=== PATIENT | female | born 1985 ===

== ENCOUNTER 2016-07-11 00:54 | Emergency (ER) | payer OTHER ==
[2016-07-11 02:48] LABS: SPECIFIC GRAVITY 1.015 (1.001-1.030); URINE BILIRUBIN NEGATIVE (NEGATIVE); URINE BLOOD 4+ (NEGATIVE); URINE GLUCOSE (UA) NEGATIVE (NEGATIVE); URINE LEUKOCYTE ESTERASE 2+ (NEGATIVE); URINE NITRITE NEGATIVE (NEGATIVE); URINE PROTEIN 2+ (NEGATIVE); URINE UROBILINOGEN NORMAL (0-1 mg/dl)
[2016-07-11 02:49] LABS: HCG,QUALITATIVE URINE NEGATIVE
[2016-07-11 02:50] LABS: URINE APPEARANCE HAZY; URINE COLOR YELLOW
[2016-07-11 02:55] LABS: URINE BACTERIA 1+; URINE EPITHELIAL CELLS FEW /hpf; URINE RBC >100 /hpf; URINE WBC >100 /hpf
[2016-07-11] MEDS ORDERED: SULFAMETHOXAZOLE 800 MG/TRIMETHOPRIM 160 MG TABLET ONE (03:08)
== END 2016-07-11 03:28 | disposition home or self-care (01) ==
LOC: ED 00:54
DX: N12 Tubulo-interstitial nephritis, not specified as acute or chronic (principal)
CPT/HCPCS: 81025; 87086; 87186; 81001; 99283 ×2; A9270

== ENCOUNTER 2016-07-13 21:47 | Emergency (ER) | payer OTHER ==
[2016-07-13] MEDS ORDERED: IOPAMIDOL 370 (76%) 100 ML VIAL IV ONE (21:48)
[2016-07-13 23:04] LABS: ABSOLUTE NEUTROPHIL COUNT 5.6 K/mm3 (1.8-7.7); BASO # 0.1 K/mm3 (0.0-0.2); BASO % 0.6 % (0.2-1.0); EOS # 0.2 (0.0-0.5); EOS % 2.2 % (0.9-2.9); HEMOGLOBIN 13.3 gm/l (12.0-16.0); IMM NEUT% 0.2 % (0-1); LYMPH # 2.2 (1.0-4.8); LYMPH % 25.1 % (15-45); MEAN CELL VOLUME 85.1 fl (81.0-99.0); MEAN CORPUSCULAR HEMOGLOBIN 27.6 pg (27.0-31.0); MEAN CORPUSCULAR HGB CONC 32.4 g/dl (33.0-37.0); MEAN PLATELET VOLUME 12.5 fl (7.4-10.4); MONO # 0.5 (0.0-0.8); MONO % 6.1 % (4-12); NEUT % 65.8 % (43-75); PLATELET COUNT 202 K/mm3 (130-400)
[2016-07-13 23:28] LABS: PH,URINE 6.5 (5.0-8.0); URINE BILIRUBIN NEGATIVE (NEGATIVE); URINE BLOOD NEGATIVE (NEGATIVE); URINE GLUCOSE (UA) NEGATIVE (NEGATIVE); URINE LEUKOCYTE ESTERASE NEGATIVE (NEGATIVE); URINE NITRITE NEGATIVE (NEGATIVE); URINE PROTEIN NEGATIVE (NEGATIVE); URINE UROBILINOGEN NORMAL (0-1 mg/dl)
[2016-07-13 23:29] LABS: URINE APPEARANCE CLEAR; URINE COLOR STRAW
[2016-07-14] MEDS ORDERED: KETOROLAC TROMETHAMINE 15 MG/ML VIAL ONE (00:52)
[2016-07-14] MEDS ORDERED: ONDANSETRON 4 MG/2ML 2 ML VIAL ONE (00:52)
--- NOTE | 2016-07-14 09:58 | CT ---
ABD/PELVIS W/ CON COMPARISON: None. HISTORY: 30-year-old female diagnosed with kidney infection 2 days ago, returning with persistent pain. Technique: No oral contrast. Intravenous injection 100 mL Isovue 370. Using a [employer] Aquilion [address] scanner, images were obtained from the diaphragm to the floor the pelvis. An automated dose reduction technique was used to minimize patient radiation dose. Dose information: CTDIvol (mGy): 7.60 DLP(mGycm): 382.40 FINDINGS: Lung bases: Normal. Inferior mediastinum and heart: Normal. Liver: Normal. Gallbladder:Normal. Bile ducts: Normal. Pancreas: Normal. Spleen: Normal. Adrenal glands: Normal. Kidneys: Normal enhancement. No evidence of pyelonephritis. No hydronephrosis or stones. Ureters: Mild inflammation in the wall of the proximal left ureter. Normal right ureter Urinary bladder: Normal. Uterus and adnexa: Normal. Blood vessels: Normal Lymph nodes: Normal Stomach: Normal Duodenum: Normal Small intestine: Normal Appendix: Normal. Colon: Normal Abdominal wall and supporting musculature: Normal Bones: Normal IMPRESSION: Mild inflammation in the wall of the proximal left ureter, evidence of inflammation, infection, or recent stone passage. Preliminary report by [facility] radiologist Colin Vang MD 07/14/2016 at 00:17
== END 2016-07-14 01:07 | disposition home or self-care (01) ==
LOC: ED 21:47
DX: R10.9 Unspecified abdominal pain (principal); Z87.440 Personal history of urinary (tract) infections
CPT/HCPCS: 85025; 80048; 81003; 74177; 99284 ×2; 96374; J1885; Q9967